=== PATIENT | male | born 1945 | race Caucasian/White ===

== ENCOUNTER → 2017-01-14 | Outpatient (CLI) | payer MEDICARE, OTHER ==
[~2017-01-14] MED LIST: CELEXA20 MG PO; CENTRUM SILVER1 TAB PO; DULCOLAX10 MG R; ECOTRIN81 MG PO; FEOSOL325 MG PO; FOLIC ACID 40400 MCG PO; KLOR-CON M2020 MEQ PO; LOPRESSOR25 MG PO; LOVENOX30 MG/0.3; MIRALAX17 GM PO; MIRAPEX0.5 MG PO; NEURONTIN300 MG PO; NORVASC5 MG PO; OSCAL + D500 MG PO; OXYGEN; PERCOCET 5-3251 EACH PO; PLAVIX75 MG; PRAVACHOL40 MG PO; PROTONIX40 MG PO; ROXICODONE5 MG PO; SENOKOT S (S1 TABLET PO; SURFAK240 MG PO; SYMBICORT 16010.2 GM INH; SYNTHROID125 MCG PO; TYLENOL325 MG PO; VITAMIN B-12100 MCG PO; VITAMIN D2000 UNIT PO; ZANAFLEX4 M2 PO; ZOFRAN4 M1 PO
== END | disposition disaster alternative care site (69) ==
LOC: GMED 18:39 → GAMB 18:39
DX: I95.9 Hypotension, unspecified (principal); R53.1 Weakness; I10 Essential (primary) hypertension; Z88.8 Allergy status to other drugs, medicaments and biological substances
CPT/HCPCS: A0425; A0429

== ENCOUNTER → 2017-04-26 | Outpatient (CLI) | payer MEDICARE, OTHER | END | disposition disaster alternative care site (69) | LOC: GAMB 21:55 | DX: R53.1 Weakness (principal); I10 Essential (primary) hypertension; E78.5 Hyperlipidemia, unspecified; R53.83 Other fatigue; Z79.01 Long term (current) use of anticoagulants; Z79.82 Long term (current) use of aspirin; Z79.891 Long term (current) use of opiate analgesic; Z79.899 Other long term (current) drug therapy | CPT/HCPCS: A0425; A0427 ==